=== PATIENT | female | born 1960 | race Caucasian/White ===

== ENCOUNTER 2016-09-12 15:34 | Observation (INO) | payer MEDICAID ==
[2016-09-12] MEDS ORDERED: SODIUM CHLORIDE 0.9% 1,000 ML ONE (15:39)
[2016-09-12 16:12] LABS: ABSOLUTE NEUTROPHIL COUNT 5.6 K/mm3 (1.8-7.7); BASO # 0.1 K/mm3 (0.0-0.2); BASO % 0.5 % (0.2-1.0); EOS # 0.1 (0.0-0.5); EOS % 0.8 % (0.9-2.9); HEMATOCRIT 47.4 % (37.0-47.0); HEMOGLOBIN 15.3 gm/l (12.0-16.0); IMM NEUT% 0.3 % (0-1); LYMPH # 2.8 (1.0-4.8); LYMPH % 31.2 % (15-45); MEAN CELL VOLUME 93.7 fl (81.0-99.0); MEAN CORPUSCULAR HEMOGLOBIN 30.2 pg (27.0-31.0); MEAN CORPUSCULAR HGB CONC 32.3 g/dl (33.0-37.0); MEAN PLATELET VOLUME 11.4 fl (7.4-10.4); MONO # 0.5 (0.0-0.8); MONO % 5.6 % (4-12); NEUT % 61.6 % (43-75); PLATELET COUNT 311 K/mm3 (130-400); RED CELL DISTRIBUTION WIDTH 14.1 % (11.5-14.5)
[2016-09-12 16:13] LABS: SPECIFIC GRAVITY 1.025 (1.001-1.030); URINE BILIRUBIN NEGATIVE (NEGATIVE); URINE BLOOD NEGATIVE (NEGATIVE); URINE GLUCOSE (UA) NEGATIVE (NEGATIVE); URINE LEUKOCYTE ESTERASE NEGATIVE (NEGATIVE); URINE NITRITE POSITIVE (NEGATIVE); URINE PROTEIN 1+ (NEGATIVE); URINE UROBILINOGEN NORMAL (0-1 mg/dl)
[2016-09-12 16:15] LABS: URINE APPEARANCE CLOUDY; URINE COLOR AMBER
[2016-09-12] MEDS ORDERED: ALBUTEROL/IPRATROPIUM 2.5/0.5 MG 3 ML/EACH DOSE ONE (16:18)
[2016-09-12 16:22] LABS: ACETAMINOPHEN < 10 ug/ml
[2016-09-12 16:25] LABS: SALICYLATE < 4 mg/dl (0-30); URINE BACTERIA 4+; URINE EPITHELIAL CELLS 0-1 /hpf; URINE RBC 0 /hpf
[2016-09-12 16:28] LABS: AMPHETAMINES/METHAMPHETAMINES POSITIVE (NEGATIVE); COCAINE NEGATIVE (NEGATIVE); MARIJUANA NEGATIVE (NEGATIVE); METHADONE NEGATIVE (NEGATIVE); OPIATES NEGATIVE (NEGATIVE); TRICYCLIC ANTIDEPRESSANTS NEGATIVE (NEGATIVE)
[2016-09-12 17:12] LABS: ALB/GLOB RATIO 0.9 (>1.0); ALBUMIN 3.8 gm/dL (3.5-5.7); CALCIUM 9.5 mg/dL (8.6-10.3)
[2016-09-12] MEDS ORDERED: SODIUM CHLORIDE 0.9% 100 ML IV PRN (18:20)
[2016-09-12] MEDS ORDERED: MENTHOL/CETYLPYRD 1 EACH LOZENGE PO PRN (18:20)
[2016-09-12] MEDS ORDERED: BISACODYL 10 MG SUP PR PRN (18:20)
[2016-09-12] MEDS ORDERED: BLISTEX LIPSTICK 1 EACH TP PRN (18:20)
[2016-09-12] MEDS ORDERED: MAGNESIUM HYDROXIDE 30 ML UDCUP PO PRN (18:20)
[2016-09-12] MEDS ORDERED: BISACODYL 5 MG TABLET.EC PO PRN (18:20)
[2016-09-12] MEDS ORDERED: ALBUTEROL/IPRATROPIUM 2.5/0.5 MG 3 ML/EACH DOSE NEB PRN (18:26)
[2016-09-12] MEDS ORDERED: NICOTINE 14 MG PATCH 1 EACH TD PRN (18:26)
[2016-09-12] MEDS ORDERED: PANTOPRAZOLE SODIUM 40 MG VIAL IV SCH (18:30)
[2016-09-12] MEDS ORDERED: ENOXAPARIN SODIUM 40 MG/0.4 ML SYRINGE SUB-Q SCH (18:30)
[2016-09-12 19:00] VITALS: BMI 35.6
[2016-09-12] MEDS ORDERED: PUMP TUBING ONE (19:13)
[2016-09-12] MEDS ORDERED: LEVOFLOXACIN 250MG/D5W 50ML 250 MG in Premix (D5W) 50 ml 1 EACH IV SCH (19:15)
[2016-09-12] MEDS: D5 1/2NS with 20 mEq KCL 1,000 ML IV SCH (19:23)
--- NOTE | 2016-09-12 19:50 | HP ---
YASIR FRAZIER DATE OF ADMISSION: September 12, 2016 CHIEF COMPLAINT: Intentional Ativan overdose. HISTORY OF PRESENT ILLNESS: The patient is a 56-year-old female without history of suicide attempts who had an argument with her boyfriend and then took intentional overdose of Ativan. He is uncertain how much she took. It could be possibly a total of 6 mg but that is not certain at 1:15 p.m. today. No other medications were known to be taken, no alcohol taken. Patient developed sleepiness, slurring words, not making sense and was brought to the hospital. She has no history of seeing a counselor or other treatment. PAST MEDICAL HISTORY: Is remarkable for: 1. Hypertension. 2. Chronic obstructive pulmonary disease and asthma which is fairly limiting for her. 3. She has had a history of previous myocardial infarction times two. 4. Has a history of high cholesterol. 5. History of pinched nerve and her left leg is numb according to old records. 6. She had a slow to heal leg wound in 2016. 7. She also had a prior history of drug abuse with amphetamines being positive in 2004. PAST SURGICAL HISTORY: Reported to be negative. ALLERGIES: Uncertain. Her daughter thinks she might be allergic to PENICILLIN but is not sure. CURRENT MEDICATIONS: 1. She has not taken any blood pressure medicines in the last year. 2. She uses albuterol as needed. 3. Ibuprofen as needed. 4. Omeprazole as needed. SOCIAL HISTORY: She lives in [place] in a house with her daughter. She is , has a boyfriend. Daughter says the boyfriend is not being very helpful. 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 She smokes a pack of cigarettes a day. Has one drink of alcohol per month. Perhaps occasional marijuana. Daughter does not know about methamphetamine. Hobbies, she likes to visit with her mother and has a cat. FAMILY HISTORY: Father at 52 of an abdominal aortic aneurysm. Mom is 81 with Alzheimer's, cardiomyopathy and diabetes. She has two kids that are healthy. REVIEW OF SYSTEMS: Eyes, ears, nose and throat, problems with ears with drainage and dry suggestive of chronic otitis externa. She has chronic obstructive pulmonary disease and uses albuterol a couple of times a week but would be very limited as far as walking more than from one room to the other in her house. She has had two previous heart attacks but is not on any medicines for this. Stomach, she has had a history of irritable bowel and gastroesophageal reflux disease. She has had no urinary complaints reported to her daughter. No breast complaints reported. She has some eczema in arms and legs. Her activity tolerance is limited due to respiratory status. She has not had a stroke. No mood, no depression and no hallucinations symptoms. Above history is taken from the daughter who lives with her as patient is unable to answer. PHYSICAL EXAMINATION: GENERAL: Sleepy female who generally does not respond to sternal rub or other stimulation. VITAL SIGNS: Blood pressure is 128/82, respirations 22, pulse 88, temperature 36.4, 93% saturation on 3 liters. HEENT: Head is normocephalic, atraumatic. Eyes are closed. Pupils are quite small bilaterally. No icterus is noted. Ears, external otitis noted bilaterally. Tympanic membranes are normal bilaterally. Nose is unremarkable. Mouth, dentition is poor. Upper dentures present. NECK: No crepitance, no masses, no jugular venous distention is noted. LUNGS: Wheezes and coarse breath sounds bilaterally. CARDIOVASCULAR: Heart is difficult to auscultate. BREAST: Exam is grossly unremarkable. ABDOMEN: Obese, bowel sounds are present but quiet. There is no rebound, no guarding, no tenderness noted. GENITOURINARY: Burton is in. EXTREMITIES: Legs have some diffuse erythema which is not cellulitic appearing but more reticular appearance. Feet are grossly unremarkable except for some onychomycosis. NEUROLOGIC: Patient's pupils are small. Deep tendon reflexes are difficult to illicit throughout. No rigidity, no tremor noted. LABORATORY STUDIES: White count 9.1, hemoglobin 15.3, platelets 311. Sodium 135, potassium 4.1, chloride 103, CO2 24, BUN 13, creatinine 0.8, glucose 102, calcium is 9.5. Liver function tests are normal. Urinalysis, specific gravity 1.025, 1+ protein, 5 to 10 white cells, 4+ bacteria. Urine drug screen positive for amphetamines, benzodiazepines. Ethanol less than 20. Acetaminophen less than 10. Salicylates less than 4. ELECTROCARDIOGRAM: Normal sinus rhythm at 92, left axis deviation noted. Q waves noted anteriorly. ASSESSMENT: 1. Intentional benzodiazepine overdose. Uncertain as to the total, 6 mg is suggested but not clear. Plan to observe, watch saturations and when she is awake, we will have her speak with social work. Her myosis would suggest possible other medication involved but urine drug screen and other testing is negative at this time. We will monitor. 2. Chronic obstructive pulmonary disease. Anticipate nicotine patch as needed and we will give her Duoneb. 3. Urinary tract infection suggested by urinalysis. Culture is pending. Plan Levaquin for presumed urinary tract infection. 4. History of hypertension. We will monitor and consider starting an oral medication later. 5. Stressors with boyfriend. Not otherwise addressed today but appreciate social work input. 6. Code status is presumed FULL CODE. 7. Concern for drug abuse. Appreciate social work input. 8. Chronic otitis externa. We will consider treatment for this. 9. Venous thrombosis prophylaxis. Anticipate the use of Lovenox. Cc: Justyn Chau M.D. [facility]
[2016-09-12] MEDS: DOCUSATE SODIUM 100 MG CAPSULE PO SCH (20:37)
[2016-09-13] MEDS: NEOMY SULF/POLYMYX B SULF/HC OTIC 200 GTTS/10 ML BOT SUSP AU SCH ×3 (00:44→13:48)
[2016-09-13] MEDS: D5 1/2NS with 20 mEq KCL 1,000 ML IV SCH ×2 (03:31→13:02)
[2016-09-13 06:04] LABS: ABSOLUTE NEUTROPHIL COUNT 2.7 K/mm3 (1.8-7.7); BASO # 0.1 K/mm3 (0.0-0.2); EOS # 0.1 (0.0-0.5); EOS % 1.8 % (0.9-2.9); HEMATOCRIT 43.7 % (37.0-47.0); HEMOGLOBIN 13.6 gm/l (12.0-16.0); IMM NEUT% 0.1 % (0-1); LYMPH # 3.4 (1.0-4.8); LYMPH % 49.9 % (15-45); MEAN CORPUSCULAR HEMOGLOBIN 29.9 pg (27.0-31.0); MEAN CORPUSCULAR HGB CONC 31.1 g/dl (33.0-37.0); MEAN PLATELET VOLUME 11.9 fl (7.4-10.4); MONO # 0.5 (0.0-0.8); NEUT % 40.2 % (43-75); PLATELET COUNT 259 K/mm3 (130-400); RED CELL DISTRIBUTION WIDTH 14.2 % (11.5-14.5)
[2016-09-13 06:09] LABS: ALB/GLOB RATIO 0.9 (>1.0); ALBUMIN 3.2 gm/dL (3.5-5.7); CALCIUM 8.6 mg/dL (8.6-10.3)
--- NOTE | 2016-09-13 08:29 | PDOC43 ---
- Subjective Chief Complaint: overdose Patient woke up last night after admission. RN reports pt still sleepy, wheezy. Sat 89-91% on RA, was placed on O2. Patient able to answer some. She reports taking 6 or 8 lorazepam, and had some desire to kill herself at the time, but not now. She reports no prior suicide attempts. She reports feeling ok, just sleepy. Breathing is ok. No pains or other complaints, but isn't forthcoming. - Objective Vital Signs Temperature 97.2 F 09/13/16 07:30 Pulse Rate 86 09/13/16 07:30 Respiratory Rate 18 09/13/16 07:30 Blood Pressure 141/86 09/13/16 07:30 O2 Saturation by Pulse Oximetry 89 09/13/16 07:44 Oxygen Delivery Method Room Air Oxygen Flow Rate 0 Vital Signs Last 12 Hours Temp Pulse Resp BP Pulse Ox 09/13/16 07:44 89 09/13/16 07:30 97.2 F 86 18 141/86 97 09/13/16 03:32 20 09/13/16 03:06 97.3 F 86 18 119/74 94 09/13/16 01:04 97.4 F 87 19 124/76 95 09/13/16 00:00 97.4 F 86 20 114/73 94 09/12/16 23:04 97.4 F 85 18 123/81 94 09/12/16 22:15 18 09/12/16 22:05 97.3 F 87 18 113/71 95 Intake and Output 09/11/16 09/12/16 09/13/16 23:59 23:59 23:59 Intake Total 1161 Output Total 140 185 Balance -140 976 General: Other (sleepy, but awakens, tends to drift off. Answers generally appropriately.) HEENT: Atraumatic Lungs: Other (wheezes bilat.) Cardiovascular: Regular Rate and Rhythm Abdomen: Soft, Normal Bowel Sounds, Non-Distended, No Tenderness Extremities: No Edema Neurological: Normal Speech Laboratory 09/13/16 05:20 09/13/16 05:20 09/13/16 05:20 MCHC 31.1 L Estimated GFR 104 H Albumin 3.2 L Globulin 3.7 H Albumin/Globulin Ratio 0.9 L Current Medications: Current meds reviewed in EMR. Active Medications Albuterol/Ipratropium (Duoneb) 3 ml NEB Q6H PRN PRN Reason: Wheezing Benzocaine/Menthol (Cepacol) 1 each PO PRN PRN PRN Reason: Sore Throat Bisacodyl (Dulcolax) 10 mg RI DAILY PRN PRN Reason: Constipation Bisacodyl (Dulcolax) 5 mg PO DAILY PRN PRN Reason: Constipation Docusate Sodium (Colace) 100 mg PO BID [facility] Last Admin: 09/12/16 20:37 Dose: Not Given Enoxaparin Sodium (Lovenox) 40 mg SUB-Q Q24H [facility] Last Admin: 09/12/16 19:23 Dose: 40 mg Potassium Chloride/Dextrose/Sod Cl (D51/2ns With 20 Meq Kcl) 1,000 mls @ 125 mls/hr IV .Q8H [facility] Last Admin: 09/13/16 03:31 Dose: 125 mls/hr Sodium Chloride (Sodium Chloride 0.9%) 100 mls @ 25 mls/hr IV PRN PRN PRN Reason: Flush Levofloxacin/Dextrose 250 mg/ (Premix (D5W) 50 ml) 50 mls @ 50 mls/hr IV Q24H [facility] Last Admin: 09/12/16 19:30 Dose: 50 mls/hr Magnesium Hydroxide (Milk Of Magnesia) 30 ml PO DAILY PRN PRN Reason: Constipation Neomycin/Polymyxin/Hydrocortisone (Cortisporin Otic Suspension) 4 gtts AU QID [facility] Last Admin: 09/13/16 00:44 Dose: Not Given Nicotine (Nicoderm Cq) 1 each TD DAILY PRN PRN Reason: Withdrawal Symptoms Pantoprazole Sodium (Protonix) 40 mg IV Q24H [facility] Last Admin: 09/12/16 19:23 Dose: 40 mg Petrolatum/Paraffin/Mineral Oil (Blistex) 1 each TP PRN PRN PRN Reason: Dry and/or chapped lips Sodium Chloride (Normal Saline 10ml Flush) 10 - 50 ml IV PRN PRN PRN Reason: IV Flush Sodium Chloride (Normal Saline 10ml Flush) 10 ml IV Q8HR [facility] Last Admin: 09/13/16 00:45 Dose: Not Given - Problems: Assessment/Plan (1) Benzodiazepine overdose of undetermined intent Qualifiers: Encounter type: initial encounter Qualifier Code: (T42.4X4A) Poisoning by benzodiazepines, undetermined, initial encounter Status: AcuteAssessment/ Plan: Med effect waning, now answers. Pt indicates there was suicidal intent at the time; but not now. Approaching medically stable status, anticipate SW consult to help with next steps. (2) COPD (chronic obstructive pulmonary disease) Qualifiers: COPD type: unspecified COPD Qualifier Code: (J44.9) Chronic obstructive pulmonary disease, unspecified Status: ChronicAssessment/Plan: Nebs, currently on some supplemental O2, but suspect close to baseline. (3) HTN (hypertension) Qualifiers: Hypertension type: essential hypertension Qualifier Code: (I10) Essential (primary) hypertension Status: ChronicAssessment/Plan: BP stable, not elevated so far. (4) Smoking Status: ChronicAssessment/Plan: Nicotine replacement as needed. (5) UTI (urinary tract infection) Qualifiers: Urinary tract infection type: site unspecified Hematuria presence: without hematuria Qualifier Code: (N39.0) Urinary tract infection, site not specified Status: AcuteAssessment/Plan: Present on admission, suspected bacterial UTI, organism id pending Tx with Levaquin so far, which might also benefit her respiratory status. VTE Prophylaxis: enoxaparin Disposition: To be determined, appreciate social work input.
--- NOTE | 2016-09-13 09:33 | RAD ---
Exam: Portable chest COMPARISON: 04/13/2004 INDICATION: Mild hypoxia. FINDINGS: A semierect AP portable view of the chest demonstrates low lung volumes, precluding evaluation of the lung bases. Cardiac silhouette is mildly prominent. Diffuse interstitial opacities are appreciated. No focal airspace disease or pleural effusion. Bones of the chest wall within normal limits. IMPRESSION: Mild diffuse interstitial opacities which are new since the 2004 exam. A component of pulmonary fibrosis is suspected. Mild pulmonary edema is considered in the differential diagnosis but this is felt less likely.
[2016-09-13] MEDS: DOCUSATE SODIUM 100 MG CAPSULE PO SCH (10:06)
[2016-09-13] MEDS ORDERED: ALBUTEROL SULFATE MDI 60 PUFFS/INHALER IH PRN (11:02)
[2016-09-13] MEDS ORDERED: IBUPROFEN 200 MG TABLET PO PRN (11:02)
[2016-09-13] MEDS ORDERED: ALBUTEROL NEB 2.5 MG/3 ML VIAL.NEB NEB PRN (11:34)
[2016-09-13] MEDS ORDERED: FLU VACC 2016-17 (36MO-64Y)/PF 60 MCG/0.5 ML SYRINGE IM V ONE (12:53)
[2016-09-13 14:40] VITALS: BP 129/80
--- NOTE | 2016-09-13 17:14 | DS ---
YASIR FRAZIER [id number] DATE OF ADMISSION: September 12, 2016 DATE OF DISCHARGE: September 13, 2016 DISCHARGE DIAGNOSIS: Suicide attempt secondary to benzodiazepines overdose. OTHER DIAGNOSES: Include: 1. Chronic respiratory failure due to emphysema and pulmonary fibrosis with hypoxia. 2. Chronic depression. 3. History of polysubstance abuse. 4. History of hypertension. 5. Urinary tract infection, organism unknown. SUMMARY OF ADMISSION AND HOSPITAL COURSE: The patient is 56-year-old female who got into an argument with her boyfriend and took an intentional overdose of Ativan. It is not known how much but believe that she had no more than 6 mg in her possession. However, she was excessively somnolent and failed to improve during a brief period of observation in the emergency department, so was referred to the hospitalist service for observation. On the patient monitor and on oxymetry throughout the day she remained stable but did have some hypoxia while sleeping with oxygen saturation as low as 75% on room air. At rest her oxygen saturations were 92% on room air when awake. With activity, her oxygen saturation dropped to 82% and increased to 89% with supplemental oxygen at 2 liters by nasal cannula. Chest x-ray was performed showing evidence of pulmonary fibrosis but no acute infiltrates. She was felt to be medically stable for discharge home on September 13, 2016 after interview with the mental health screener and was felt to be a low suicide risk. PHYSICAL EXAM: VITAL SIGNS: At discharge her vital signs showed a temperature of 97.4, pulse 86, blood pressure is 144/80, respirations 26, oxygen saturation 89% on two liters by nasal cannula. GENERAL: This is an obese female in no acute distress. HEENT: Is unremarkable. LUNGS: Reveal bibasilar crackles. CARDIOVASCULAR: Exam reveals a regular rate and rhythm without a murmur. ABDOMEN: Is obese, soft, nontender, nondistended with positive bowel sounds. EXTREMITIES: Show no peripheral edema. LABORATORY STUDIES: On the day of discharge, showed a comprehensive metabolic panel which was within normal limits. A CBC which was within normal limits. A toxicology screen on admission was positive for amphetamines and benzodiazepines. Negative for salicylates, Tylenol and opiates. CONDITION AT DISCHARGE: Fair. FOLLOWUP: She has been scheduled for followup with the [facility] to be arranged in the next week or two. DISCHARGE MEDICATIONS: Include: 1. Levaquin 250 mg daily for five days. 2. Albuterol HFA metered dose inhaler one to two puffs every four hours as needed for wheezing. 3. Prilosec 20 mg daily. 4. Advil 400 mg every six hours as needed for pain. Cc: [facility]
[2016-09-14] MEDS ORDERED: PANTOPRAZOLE 40 MG TABLET DR PO SCH (09:00)
== END 2016-09-13 14:45 | disposition home or self-care (01) ==
LOC: ED 15:34 → ICU 17:37
PROVIDERS: ADMIT Family Medicine; ATTEND Family Medicine
DX: T42.4X2A Poisoning by benzodiazepines, intentional self-harm, initial encounter (principal); Y92.019 Unspecified place in single-family (private) house as the place of occurrence of the external cause; Z23 Encounter for immunization; J44.9 Chronic obstructive pulmonary disease, unspecified; I10 Essential (primary) hypertension; F17.210 Nicotine dependence, cigarettes, uncomplicated; N39.0 Urinary tract infection, site not specified; J96.11 Chronic respiratory failure with hypoxia; F32.9 Major depressive disorder, single episode, unspecified; F19.20 Other psychoactive substance dependence, uncomplicated
CPT/HCPCS: 90682; 83880; 80307 ×3; 85025 ×2; 87086; 80305; 80053 ×2; 87186; 84443; 81001; 71010; 94640 ×2; 99285; 96360; 93005; 99291; J1956; J1650; C9113; J7030